=== PATIENT | female | born 1955 | race Caucasian/White ===

== ENCOUNTER 2021-11-22 08:55 | Inpatient (IN) | payer BC ==
[~2021-11-22] VITALS: Ht 162.6 cm; Wt 74.8 kg
[2021-11-22] MEDS ORDERED: MORPHINE SULFATE 4 MG/1 ML DISP.SYRIN ONE (09:24)
[2021-11-22] MEDS ORDERED: ONDANSETRON 4 MG/2 ML VIAL ONE (09:24)
[2021-11-22] MEDS ORDERED: MORPHINE SULFATE 4 MG/1 ML DISP.SYRIN IV ONE (09:30)
[2021-11-22] MEDS ORDERED: ONDANSETRON 4 MG/2 ML VIAL IV ONE (09:30)
[2021-11-22 09:35] LABS: MEAN CORPUSCULAR HEMOGLOBIN 33.1 uug (24.7-32.8); PLATELET COUNT (AUTO) 301 K/uL (179-408)
[2021-11-22 09:45] LABS: CREATININE 0.7 mg/dL (0.6-1.3); POTASSIUM 4.1 mmol/L (3.5-5.1)
[2021-11-22 09:51] LABS: BILIRUBIN,DIRECT 0.1 mg/dL (0.0-0.2); BILIRUBIN,TOTAL 0.4 mg/dL (0.2-1.0); TOTAL PROTEIN, SERUM 7.9 g/dL (6.4-8.2)
[2021-11-22] MEDS ORDERED: VENL37.510 PO (10:18)
[2021-11-22] MEDS ORDERED: HYDR25TA4 PO (10:18)
[2021-11-22] MEDS ORDERED: BENA20TA9 PO (10:18)
[2021-11-22] MEDS ORDERED: ONDA4TAB5 PO (10:18)
[2021-11-22] MEDS ORDERED: URSO500T10 PO (10:18)
[2021-11-22] MEDS ORDERED: MECL-159 PO (10:18)
[2021-11-22 10:20] LABS: *BILIRUBIN,URIN NEGATIVE (NEGATIVE); *BLOOD, URINE TRACE (NEGATIVE); *CLARITY,URINE CLEAR (CLEAR); *COLOR,URINE YELLOW (YELLOW); *KETONES,URINE NEGATIVE (NEGATIVE); *UROBILINOGEN,URINE 0.2 E.U./dl (NORMAL); LEUKOCYTE ESTERASE ,URINE 3+ (NEGATIVE); NITRITE, URINE NEGATIVE (NEGATIVE); PH,URINE 8.5 (5.0-8.0); UGLUCOSE NEGATIVE (NEGATIVE)
[2021-11-22] MEDS ORDERED: DIAZEPAM 10 MG/2 ML DISP.SYRIN IV ONE (10:30)
[2021-11-22] MEDS ORDERED: DIAZEPAM 10 MG/2 ML DISP.SYRIN ONE (11:26)
[2021-11-22] MEDS ORDERED: CEFTRIAXONE /D5W 50ML IVPB **ER PYXIS IV ONE (11:55)
[2021-11-22] MEDS ORDERED: CEFTRIAXONE 1 G in IV DEXTROSE 5% 50 ML IV ONE (12:00)
[2021-11-22] MEDS ORDERED: HYDROMORPHONE 1 MG/1 ML DISP.SYRIN IV STA (14:10)
[2021-11-22] MEDS ORDERED: HYDROMORPHONE 1 MG/1 ML DISP.SYRIN ONE (14:12)
[2021-11-22] MEDS ORDERED: URSO250T12 PO (15:38)
[2021-11-22] MEDS ORDERED: ACETAMINOPHEN 325 MG TABLET PO PRN (15:45)
[2021-11-22] MEDS ORDERED: TEMAZEPAM 15 MG CAPSULE PO PRN (15:45)
[2021-11-22] MEDS ORDERED: ONDANSETRON 4 MG/2 ML VIAL IV PRN (15:45)
[2021-11-22] MEDS ORDERED: hydrALAZINE HCL 25 MG TABLET PO PRN (15:45)
[2021-11-22 15:56] LABS: BACTERIA,URINE MODERATE /HPF (NONE SEEN); SQUAMOUS EPITHELIAL CELL,UR MODERATE /HPF (NONE SEEN); WBC,URINE 20-50 /HPF (0-3)
[2021-11-22 16:31] VITALS: BP 147/71
[2021-11-22] MEDS: MORPHINE SULFATE 2 MG/1 ML DISP.SYRIN IV PRN ×2 (17:56→22:28)
[2021-11-22] MEDS: URSODIOL 300 MG CAPSULE PO SCH (18:42)
[2021-11-22 20:00] VITALS: BP 121/74
[2021-11-22] MEDS: DOCUSATE SODIUM 100 MG CAPSULE PO SCH (20:22)
[2021-11-23 04:00] VITALS: BP 137/74
[2021-11-23] MEDS: MORPHINE SULFATE 2 MG/1 ML DISP.SYRIN IV PRN ×2 (04:36→09:08)
[2021-11-23] MEDS: PANTOPRAZOLE SODIUM 40 MG TABLET.DR PO SCH (06:33)
[2021-11-23 06:45] LABS: MEAN CORPUSCULAR HEMOGLOBIN 33.1 uug (24.7-32.8); MEAN CORPUSCULAR VOLUME 94.2 fL (75.5-95.3); PLATELET COUNT (AUTO) 309 K/uL (179-408)
[2021-11-23 07:35] LABS: BILIRUBIN,TOTAL 0.4 mg/dL (0.2-1.0); CREATININE 0.7 mg/dL (0.6-1.3); PHOSPHOROUS 4.8 mg/dL (2.5-4.9); POTASSIUM 4.2 mmol/L (3.5-5.1); TOTAL PROTEIN, SERUM 7.5 g/dL (6.4-8.2)
[2021-11-23 07:42] LABS: MAGNESIUM 2.1 mg/dL (1.8-2.4); THYROID STIMULATING HORMONE 3.833 mIU/mL (0.358-3.740)
[2021-11-23] MEDS ORDERED: URSODIOL PO SCH (09:00)
[2021-11-23] MEDS ORDERED: MORPHINE SULFATE 4 MG/1 ML DISP.SYRIN IV PRN (09:24)
[2021-11-23] MEDS: HYDROCHLOROTHIAZIDE 25 MG TABLET PO SCH (09:47)
[2021-11-23] MEDS: URSODIOL 300 MG CAPSULE PO SCH ×3 (09:47→17:47)
[2021-11-23 10:31] LABS: *BILIRUBIN,URIN NEGATIVE (NEGATIVE); *BLOOD, URINE NEGATIVE (NEGATIVE); *CLARITY,URINE CLEAR (CLEAR); *COLOR,URINE YELLOW (YELLOW); *KETONES,URINE NEGATIVE (NEGATIVE); *UROBILINOGEN,URINE 0.2 E.U./dl (NORMAL); LEUKOCYTE ESTERASE ,URINE NEGATIVE (NEGATIVE); NITRITE, URINE NEGATIVE (NEGATIVE); PH,URINE 7.5 (5.0-8.0); UGLUCOSE NEGATIVE (NEGATIVE)
[2021-11-23 12:00] VITALS: BP 120/78
[2021-11-23] MEDS: CEFTRIAXONE 1 G in IV DEXTROSE 5% 50 ML IV SCH (12:39)
[2021-11-23] MEDS: HYDROCODONE/APAP 5-325MG TABLET PO PRN ×2 (12:40→17:47)
[2021-11-23 16:00] VITALS: BP 139/91
[2021-11-23 20:00] VITALS: BP 170/91
[2021-11-23] MEDS: DIAZEPAM 10 MG TABLET PO PRN (20:15)
[2021-11-23] MEDS: DOCUSATE SODIUM 100 MG CAPSULE PO SCH (20:20)
[2021-11-23] MEDS: MORPHINE SULFATE 4 MG/1 ML DISP.SYRIN IV PRN (22:55)
[2021-11-24 04:00] VITALS: BP 121/86
[2021-11-24] MEDS: MORPHINE SULFATE 4 MG/1 ML DISP.SYRIN IV PRN ×5 (05:23→21:29)
[2021-11-24] MEDS: PANTOPRAZOLE SODIUM 40 MG TABLET.DR PO SCH (06:18)
[2021-11-24] MEDS: DIAZEPAM 10 MG TABLET PO PRN ×2 (08:12→16:30)
[2021-11-24] MEDS: HYDROCHLOROTHIAZIDE 25 MG TABLET PO SCH (09:24)
[2021-11-24] MEDS: URSODIOL 300 MG CAPSULE PO SCH ×3 (10:01→17:28)
[2021-11-24] MEDS: VENLAFAXINE 25 MG TABLET PO SCH (11:49)
[2021-11-24] MEDS: CEFTRIAXONE 1 G in IV DEXTROSE 5% 50 ML IV SCH (11:54)
[2021-11-24 12:00] VITALS: BP_SYST 121; BP_SYST 137; BP_DIAS 70; BP_DIAS 89
[2021-11-24 16:00] VITALS: BP 131/91
[2021-11-24] MEDS: MAGNESIUM HYDROXIDE 30 ML LIQUID UDC PO PRN (16:34)
[2021-11-24] MEDS ORDERED: ONDANSETRON HCL 4 MG TABLET PO PRN (19:00)
[2021-11-24 20:08] VITALS: BP 132/85
[2021-11-24] MEDS: DOCUSATE SODIUM 100 MG CAPSULE PO SCH (20:35)
[2021-11-24] MEDS: ATORVASTATIN 10 MG TABLET PO SCH (20:35)
[2021-11-25] MEDS: MORPHINE SULFATE 4 MG/1 ML DISP.SYRIN IV PRN ×4 (01:41→16:18)
[2021-11-25 04:40] VITALS: BP 121/76
[2021-11-25] MEDS: DIAZEPAM 10 MG TABLET PO PRN ×3 (04:57→22:27)
[2021-11-25] MEDS: PANTOPRAZOLE SODIUM 40 MG TABLET.DR PO SCH (06:15)
[2021-11-25 06:44] LABS: HEMATOCRIT 40.1 % (31.2-41.9); MEAN CORPUSCULAR HEMOGLOBIN 32.7 uug (24.7-32.8); MEAN CORPUSCULAR VOLUME 93.6 fL (75.5-95.3); PLATELET COUNT (AUTO) 341 K/uL (179-408)
[2021-11-25 07:08] LABS: CREATININE 0.6 mg/dL (0.6-1.3); MAGNESIUM 2.1 mg/dL (1.8-2.4); PHOSPHOROUS 4.1 mg/dL (2.5-4.9); POTASSIUM 3.6 mmol/L (3.5-5.1)
[2021-11-25 07:30] VITALS: BP 119/84
[2021-11-25] MEDS: VENLAFAXINE 25 MG TABLET PO SCH (08:41)
[2021-11-25] MEDS: HYDROCHLOROTHIAZIDE 25 MG TABLET PO SCH (08:41)
[2021-11-25] MEDS: HYDROCODONE/APAP 5-325MG TABLET PO PRN ×3 (08:41→21:41)
[2021-11-25] MEDS: URSODIOL 300 MG CAPSULE PO SCH ×3 (08:42→15:59)
[2021-11-25] MEDS: CEFTRIAXONE 1 G in IV DEXTROSE 5% 50 ML IV SCH (13:01)
[2021-11-25 16:00] VITALS: BP 122/80
[2021-11-25 20:09] VITALS: BP 126/88
[2021-11-25] MEDS: DOCUSATE SODIUM 100 MG CAPSULE PO SCH (21:40)
[2021-11-25] MEDS: ATORVASTATIN 10 MG TABLET PO SCH (21:41)
[2021-11-26] MEDS: MORPHINE SULFATE 4 MG/1 ML DISP.SYRIN IV PRN ×3 (00:42→09:20)
[2021-11-26 04:09] VITALS: BP 132/88
[2021-11-26] MEDS: PANTOPRAZOLE SODIUM 40 MG TABLET.DR PO SCH (06:00)
[2021-11-26] MEDS ORDERED: MAGNESIUM CITRATE 296 ML BOTTLE PO ONE (08:45)
[2021-11-26] MEDS: URSODIOL 300 MG CAPSULE PO SCH ×3 (09:04→17:04)
[2021-11-26] MEDS: VENLAFAXINE 25 MG TABLET PO SCH (09:14)
[2021-11-26] MEDS: HYDROCHLOROTHIAZIDE 25 MG TABLET PO SCH (09:14)
[2021-11-26] MEDS: ACIDOPHILUS/BULGARICUS CHEW TAB PO SCH ×2 (10:10→20:05)
[2021-11-26 11:17] VITALS: BP 133/92
[2021-11-26] MEDS: CEphaleXIN 500 MG CAPSULE PO SCH ×2 (13:02→21:10)
[2021-11-26] MEDS: DIAZEPAM 10 MG TABLET PO PRN (13:13)
[2021-11-26 15:14] VITALS: BP 130/75
[2021-11-26] MEDS: ENSURE ENLIVE (VAN) 240 ML LIQUID PO SCH (17:04)
[2021-11-26] MEDS: MAGNESIUM HYDROXIDE 30 ML LIQUID UDC PO PRN (20:05)
[2021-11-26] MEDS: ATORVASTATIN 10 MG TABLET PO SCH (20:05)
[2021-11-26] MEDS: DOCUSATE SODIUM 100 MG CAPSULE PO SCH (20:05)
[2021-11-26 21:18] VITALS: BP 109/75
[2021-11-26] MEDS: HYDROCODONE/APAP 5-325MG TABLET PO PRN (21:44)
[2021-11-27] MEDS: MORPHINE SULFATE 4 MG/1 ML DISP.SYRIN IV PRN ×3 (00:52→14:49)
[2021-11-27 04:54] VITALS: BP 128/92
[2021-11-27] MEDS: CEphaleXIN 500 MG CAPSULE PO SCH ×2 (05:29→14:48)
[2021-11-27] MEDS: HYDROCODONE/APAP 5-325MG TABLET PO PRN ×2 (05:29→16:53)
[2021-11-27] MEDS: PANTOPRAZOLE SODIUM 40 MG TABLET.DR PO SCH (06:40)
[2021-11-27] MEDS: HYDROCHLOROTHIAZIDE 25 MG TABLET PO SCH (09:00)
[2021-11-27] MEDS: ACIDOPHILUS/BULGARICUS CHEW TAB PO SCH (09:52)
[2021-11-27] MEDS: ENSURE ENLIVE (VAN) 240 ML LIQUID PO SCH ×2 (09:52→16:19)
[2021-11-27] MEDS: VENLAFAXINE 25 MG TABLET PO SCH (09:53)
[2021-11-27] MEDS: URSODIOL 300 MG CAPSULE PO SCH ×3 (09:53→16:19)
[2021-11-27] MEDS: DIAZEPAM 10 MG TABLET PO PRN (11:00)
[2021-11-27] MEDS ORDERED: MAGNESIUM CITRATE 296 ML BOTTLE PO ONE (11:15)
[2021-11-27] MEDS ORDERED: MIRALAX 17 GM POWD.PACK PO PRN (11:45)
[2021-11-27 12:00] VITALS: BP 137/90
[2021-11-27] MEDS ORDERED: HYDR-894 PO (15:13)
[2021-11-27] MEDS ORDERED: BENA20TA9 PO (15:13)
[2021-11-27] MEDS ORDERED: ACID1TAB4 PO (15:13)
[2021-11-27] MEDS ORDERED: MAGN400O6 PO (15:13)
[2021-11-27] MEDS ORDERED: PANT40TA49 PO (15:13)
[2021-11-27] MEDS ORDERED: TEMA15CA PO (15:13)
[2021-11-27] MEDS ORDERED: HYDR-3972 PO (15:13)
[2021-11-27] MEDS ORDERED: POLY17PO4 PO (15:13)
[2021-11-27] MEDS ORDERED: ATOR10TA PO (15:13)
[2021-11-27] MEDS ORDERED: DOCU-141 PO (15:13)
[2021-11-27] MEDS ORDERED: DIAZ10TA4 PO (15:13)
[2021-11-27] MEDS ORDERED: CEPH500C2 PO (15:13)
[2021-11-27] MEDS ORDERED: Lactose-Free Food PO (15:13)
== END 2021-11-27 17:55 | DRG 551 ==
LOC: ER 08:55 → MEDSURG3 13:48
PROVIDERS: ADMIT Internal Medicine; ATTEND Internal Medicine
DX: M54.59 Other low back pain (principal); U07.1 COVID-19; N39.0 Urinary tract infection, site not specified; D68.59 Other primary thrombophilia; S32.10XD Unspecified fracture of sacrum, subsequent encounter for fracture with routine healing; W18.39XD Other fall on same level, subsequent encounter; B96.20 Unspecified Escherichia coli [E. coli] as the cause of diseases classified elsewhere; Z98.1 Arthrodesis status; Z88.2 Allergy status to sulfonamides; Z74.01 Bed confinement status; M43.16 Spondylolisthesis, lumbar region; K56.41 Fecal impaction; E78.5 Hyperlipidemia, unspecified; K74.3 Primary biliary cirrhosis; F12.90 Cannabis use, unspecified, uncomplicated; I10 Essential (primary) hypertension
CPT/HCPCS: 36415; 83550; 83735; 84100; 84443; 84484; 85025; 86803; 87040; 87086; 87806; 93005; 97161; A4663; G0378; J0696; J1170; J2270; J2405; J3360